=== PATIENT | female | born 1960 | race Two or more races ===

== ENCOUNTER 2017-11-26 07:56 | Outpatient (CLI) | payer OTHER ==
[~2017-11-26 07:56] MED LIST: ACTICAL SOFTGEL1 CAP
== END 2017-11-26 11:26 | disposition home or self-care (01) ==
LOC: MRI 07:56
DX: G93.0 Cerebral cysts (principal)
CPT/HCPCS: 70551

== ENCOUNTER 2018-01-05 06:44 | Outpatient (CLI) | payer OTHER | END 2018-01-05 06:50 | disposition home or self-care (01) | LOC: LAB 06:44 | DX: N30.00 Acute cystitis without hematuria (principal); E83.51 Hypocalcemia ==

== ENCOUNTER 2018-01-05 07:51 | Outpatient (CLI) | payer OTHER | END 2018-01-05 08:04 | disposition home or self-care (01) | LOC: MAMO-SONO 07:51 | DX: Z12.31 Encounter for screening mammogram for malignant neoplasm of breast (principal); N61.1 Abscess of the breast and nipple; K76.0 Fatty (change of) liver, not elsewhere classified ==

== ENCOUNTER 2018-01-05 11:21 | Outpatient (CLI) | payer OTHER | END 2018-01-05 11:22 | disposition home or self-care (01) | LOC: NUCLEAR 11:21 | DX: M81.0 Age-related osteoporosis without current pathological fracture (principal) ==

== ENCOUNTER → 2018-01-20 | Outpatient (CLI) | payer OTHER | END | disposition home or self-care (01) | LOC: RAD 11:14 | DX: M25.561 Pain in right knee (principal) ==

== ENCOUNTER 2018-03-18 07:26 | Outpatient (CLI) | payer OTHER | END 2018-03-18 07:46 | disposition home or self-care (01) | LOC: MRI 07:26 | DX: G93.0 Cerebral cysts (principal) | CPT/HCPCS: 70552 ==

== ENCOUNTER 2018-05-29 07:08 | Outpatient (CLI) | payer OTHER | END 2018-05-29 07:18 | disposition home or self-care (01) | LOC: LAB 07:08 | DX: N20.0 Calculus of kidney (principal); R82.79 Other abnormal findings on microbiological examination of urine; R31.29 Other microscopic hematuria ==

== ENCOUNTER 2018-05-29 08:20 | Outpatient (CLI) | payer OTHER | END 2018-05-29 08:24 | disposition home or self-care (01) | LOC: SONOGRAMA 08:20 → MAMO-SONO 08:45 | DX: N20.0 Calculus of kidney (principal) ==

== ENCOUNTER 2018-06-29 17:34 | Outpatient (CLI) | payer OTHER ==
[2018-07-01] MEDS ORDERED: ZOCOR20 MG PO (12:57)
[2018-07-01] MEDS ORDERED: COZAAR50 MG PO (12:57)
== END 2018-06-29 17:44 | disposition home or self-care (01) ==
LOC: LAB 17:34
DX: N30.00 Acute cystitis without hematuria (principal); R82.79 Other abnormal findings on microbiological examination of urine

== ENCOUNTER 2018-07-06 07:56 | Day surgery (SDC) | payer OTHER ==
[~2018-07-06 07:56] MED LIST changes: +COZAAR50 MG PO; +ZOCOR20 MG PO
== END 2018-07-06 13:00 | disposition home or self-care (01) ==
LOC: U 07:56 → CIR LITO 07:56
DX: N20.1 Calculus of ureter (principal)

== ENCOUNTER 2018-07-09 07:14 | Outpatient (CLI) | payer OTHER | END 2018-07-09 07:18 | disposition home or self-care (01) | LOC: RAD 07:14 | DX: N20.0 Calculus of kidney (principal) ==

== ENCOUNTER → 2018-08-11 06:32 | Outpatient (CLI) | payer OTHER | END | disposition home or self-care (01) | LOC: LAB 06:32 | DX: D50.8 Other iron deficiency anemias (principal); N39.0 Urinary tract infection, site not specified; E11.43 Type 2 diabetes mellitus with diabetic autonomic (poly)neuropathy; E78.2 Mixed hyperlipidemia; K76.0 Fatty (change of) liver, not elsewhere classified; E03.8 Other specified hypothyroidism; E56.8 Deficiency of other vitamins; M32.9 Systemic lupus erythematosus, unspecified; D64.89 Other specified anemias; R79.89 Other specified abnormal findings of blood chemistry; E78.4 Other hyperlipidemia; N30.00 Acute cystitis without hematuria ==

== ENCOUNTER 2018-10-14 07:15 | Outpatient (CLI) | payer OTHER | END 2018-10-14 07:51 | disposition home or self-care (01) | LOC: MAMO-SONO 07:15 → SONOGRAMA 07:15 | DX: E04.2 Nontoxic multinodular goiter (principal) ==

== ENCOUNTER 2018-11-26 08:11 | Outpatient (CLI) | payer OTHER | END 2018-11-26 08:13 | disposition home or self-care (01) | LOC: RAD 08:11 | DX: R06.09 Other forms of dyspnea (principal); M32.9 Systemic lupus erythematosus, unspecified; I11.9 Hypertensive heart disease without heart failure ==

== ENCOUNTER 2019-03-22 08:10 | Outpatient (CLI) | payer OTHER | END 2019-03-22 08:34 | disposition home or self-care (01) | LOC: MRI 08:10 | DX: G93.0 Cerebral cysts (principal) | CPT/HCPCS: 70553 ==

== ENCOUNTER 2019-03-25 09:31 | Outpatient (CLI) | payer OTHER | END 2019-03-25 09:41 | disposition home or self-care (01) | LOC: LAB 09:31 | DX: N20.0 Calculus of kidney (principal); N30.00 Acute cystitis without hematuria ==

== ENCOUNTER 2019-04-06 12:58 | Outpatient (CLI) | payer OTHER | END 2019-04-06 13:14 | disposition home or self-care (01) | LOC: MAMO-SONO 12:58 | DX: N60.11 Diffuse cystic mastopathy of right breast (principal); N60.12 Diffuse cystic mastopathy of left breast; Z12.31 Encounter for screening mammogram for malignant neoplasm of breast ==

== ENCOUNTER 2020-04-21 08:57 | Outpatient (CLI) | payer OTHER | END 2020-04-21 09:07 | disposition home or self-care (01) | LOC: MAMO-SONO 08:57 | PROVIDERS: ATTEND Specialist | DX: Z12.31 Encounter for screening mammogram for malignant neoplasm of breast (principal); N60.11 Diffuse cystic mastopathy of right breast; N60.12 Diffuse cystic mastopathy of left breast ==

== ENCOUNTER 2020-04-28 10:56 | Outpatient (CLI) | payer OTHER | END 2020-04-28 10:58 | disposition home or self-care (01) | LOC: RAD 10:56 | PROVIDERS: ATTEND Specialist | DX: M17.12 Unilateral primary osteoarthritis, left knee (principal); M16.12 Unilateral primary osteoarthritis, left hip; M25.532 Pain in left wrist ==

== ENCOUNTER 2020-05-23 10:21 | Outpatient (CLI) | payer OTHER | END 2020-05-23 10:27 | disposition home or self-care (01) | LOC: RAD 10:21 | PROVIDERS: ATTEND Urology | DX: N20.0 Calculus of kidney (principal); G93.0 Cerebral cysts; S63.302A Traumatic rupture of unspecified ligament of left wrist, initial encounter | CPT/HCPCS: 70551 ==

== ENCOUNTER 2020-05-31 13:44 | Outpatient (CLI) | payer OTHER | END 2020-05-31 13:47 | disposition home or self-care (01) | LOC: NUCLEAR 13:44 | PROVIDERS: ATTEND Specialist | DX: M81.0 Age-related osteoporosis without current pathological fracture (principal) ==

== ENCOUNTER 2020-08-28 07:12 | Outpatient (CLI) | payer OTHER | END 2020-08-28 07:16 | disposition home or self-care (01) | LOC: RAD 07:12 | PROVIDERS: ATTEND Urology | DX: N20.0 Calculus of kidney (principal); M20.41 Other hammer toe(s) (acquired), right foot; M20.42 Other hammer toe(s) (acquired), left foot ==

== ENCOUNTER 2020-12-04 12:50 | Outpatient (CLI) | payer OTHER | END 2020-12-04 13:11 | disposition HB | LOC: SONOGRAMA 12:50 → MAMO-SONO 13:15 | DX: E04.2 Nontoxic multinodular goiter (principal) ==

== ENCOUNTER 2020-12-14 07:36 | Outpatient (CLI) | payer OTHER | END 2020-12-14 07:42 | disposition HB | LOC: RAD 07:36 | PROVIDERS: ATTEND Orthopaedic Surgery Hand Surgery | DX: M19.032 Primary osteoarthritis, left wrist (principal) ==

== ENCOUNTER 2021-03-01 11:08 | Outpatient (CLI) | payer OTHER | END 2021-03-01 11:13 | disposition home or self-care (01) | LOC: RAD 11:08 | PROVIDERS: ATTEND Specialist | DX: M53.86 Other specified dorsopathies, lumbar region (principal); M15.8 Other polyosteoarthritis ==

== ENCOUNTER 2021-04-06 09:51 | Outpatient (CLI) | payer OTHER | END 2021-04-06 10:04 | disposition home or self-care (01) | LOC: MRI 09:51 | PROVIDERS: ATTEND Pain Medicine Interventional Pain Medicine | DX: M54.5 Low back pain (principal) | CPT/HCPCS: 72148 ==

== ENCOUNTER → 2021-05-04 | Outpatient (CLI) | payer OTHER | END | disposition home or self-care (01) | LOC: MAMO-SONO 09:45 | PROVIDERS: ATTEND Specialist | DX: Z12.31 Encounter for screening mammogram for malignant neoplasm of breast (principal); N60.11 Diffuse cystic mastopathy of right breast; N60.12 Diffuse cystic mastopathy of left breast ==

== ENCOUNTER 2021-05-07 07:10 | Outpatient (CLI) | payer OTHER | END 2021-05-07 07:25 | disposition home or self-care (01) | LOC: RAD 07:10 | PROVIDERS: ATTEND Orthopaedic Surgery Hand Surgery | DX: M94.0 Chondrocostal junction syndrome [Tietze] (principal); M32.15 Tubulo-interstitial nephropathy in systemic lupus erythematosus; R07.89 Other chest pain; J90 Pleural effusion, not elsewhere classified; M19.132 Post-traumatic osteoarthritis, left wrist; M19.131 Post-traumatic osteoarthritis, right wrist ==

== ENCOUNTER 2021-06-06 13:53 | Outpatient (CLI) | payer OTHER | END 2021-06-15 12:04 | disposition home or self-care (01) | LOC: RAD 13:53 | PROVIDERS: ATTEND Orthopaedic Surgery Hand Surgery | DX: M25.551 Pain in right hip (principal); M25.552 Pain in left hip ==

== ENCOUNTER → 2021-06-18 13:01 | Outpatient (CLI) | payer OTHER | END | disposition home or self-care (01) | LOC: NUCLEAR 13:00 | PROVIDERS: ATTEND Specialist | DX: M81.0 Age-related osteoporosis without current pathological fracture (principal) ==

== ENCOUNTER 2021-12-06 13:50 | Outpatient (CLI) | payer OTHER | END 2021-12-06 13:53 | disposition home or self-care (01) | LOC: RAD 13:50 | PROVIDERS: ATTEND Specialist | DX: M25.561 Pain in right knee (principal) ==

== ENCOUNTER 2022-03-26 07:45 | Outpatient (CLI) | payer OTHER | END 2022-03-26 08:06 | disposition home or self-care (01) | LOC: MAMO-SONO 07:45 | PROVIDERS: ATTEND Specialist | DX: N60.11 Diffuse cystic mastopathy of right breast (principal); N60.12 Diffuse cystic mastopathy of left breast ==

== ENCOUNTER 2022-06-10 07:51 | Outpatient (CLI) | payer OTHER | END 2022-06-10 08:34 | disposition home or self-care (01) | LOC: SONOGRAMA 07:51 | PROVIDERS: ATTEND Urology | DX: N20.0 Calculus of kidney (principal); R31.1 Benign essential microscopic hematuria ==

== ENCOUNTER 2023-06-04 07:31 | Outpatient (CLI) | payer OTHER | END 2023-06-04 15:54 | disposition home or self-care (01) | LOC: MAMO-SONO 07:31 | PROVIDERS: ATTEND Specialist | DX: G93.0 Cerebral cysts (principal); N60.11 Diffuse cystic mastopathy of right breast; N60.12 Diffuse cystic mastopathy of left breast; Z12.31 Encounter for screening mammogram for malignant neoplasm of breast | CPT/HCPCS: 70552 ==

== ENCOUNTER 2023-06-04 08:23 | Outpatient (CLI) | payer OTHER | END 2023-06-04 08:30 | disposition home or self-care (01) | LOC: LAB 08:23 | PROVIDERS: ATTEND Radiology Diagnostic Radiology | DX: G93.0 Cerebral cysts (principal) ==

== ENCOUNTER 2023-06-04 13:32 | Outpatient (CLI) | payer OTHER | END 2023-06-04 13:33 | disposition home or self-care (01) | LOC: NUCLEAR 13:32 | PROVIDERS: ATTEND Specialist | DX: M81.0 Age-related osteoporosis without current pathological fracture (principal) ==

== ENCOUNTER 2023-12-01 07:25 | Outpatient (CLI) | payer OTHER | END 2023-12-01 07:31 | disposition home or self-care (01) | LOC: RAD 07:25 | PROVIDERS: ATTEND Urology | DX: M25.561 Pain in right knee (principal); M25.562 Pain in left knee; Z96.642 Presence of left artificial hip joint; M16.11 Unilateral primary osteoarthritis, right hip; N20.1 Calculus of ureter ==

== ENCOUNTER → 2023-12-05 08:37 | Outpatient (CLI) | payer OTHER ==
[2023-12-05 10:09] LABS: PH,URINE 7.5 (5.0-8.0); URINE APPEARANCE Clear; URINE BILIRRUBIN Negative (NEGATIVE); URINE BLOOD Negative; URINE COLOR Dark Yellow; URINE GLUCOSE Negative (NEGATIVE); URINE LEUKOCYTE Small; URINE NITRATE Negative; URINE PROTEIN Negative (NEGATIVE)
[2023-12-05 10:11] LABS: URINE BACTERIA 26.4 uL (0.0-1933); URINE EPITHELIAL CELLS 7.8 uL (0.0-38.8); URINE RBC 8.9 uL (0.0-20.8); URINE WBC 37.9 uL (0.0-23.2)
== END | disposition home or self-care (01) ==
LOC: LAB 08:37
PROVIDERS: ATTEND Urology
DX: N30.00 Acute cystitis without hematuria (principal)

== ENCOUNTER 2023-12-05 09:14 | Outpatient (CLI) | payer OTHER | END 2023-12-05 09:17 | disposition home or self-care (01) | LOC: SONOGRAMA 09:14 | PROVIDERS: ATTEND Urology | DX: R31.1 Benign essential microscopic hematuria (principal) ==

== ENCOUNTER → 2023-12-12 08:36 | Outpatient (CLI) | payer OTHER ==
[2023-12-12 10:02] LABS: CREATININE SERUM 0.96 mg/dL (0.55-1.02)
== END | disposition home or self-care (01) ==
LOC: LAB 08:36
PROVIDERS: ATTEND Urology
DX: R31.1 Benign essential microscopic hematuria (principal)

== ENCOUNTER 2023-12-12 09:37 | Outpatient (CLI) | payer OTHER | END 2023-12-12 09:42 | disposition home or self-care (01) | LOC: TOM 09:37 | PROVIDERS: ATTEND Urology | DX: N13.1 Hydronephrosis with ureteral stricture, not elsewhere classified (principal) ==

== ENCOUNTER 2024-02-27 07:34 | Outpatient (CLI) | payer OTHER | END 2024-02-27 07:41 | disposition home or self-care (01) | LOC: TOM 07:34 | PROVIDERS: ATTEND Urology | DX: N20.1 Calculus of ureter (principal) ==